=== PATIENT | female | born 1975 | race Caucasian/White ===

== ENCOUNTER → 2017-10-16 | Outpatient (REF) | payer OTHER ==
[~2017-10-16] MED LIST: CEPH500C24 PO; PER PO
== END ==
LOC: ZZSENDIN 11:59
PROVIDERS: ATTEND Family Medicine
DX: D22.9 Melanocytic nevi, unspecified (principal)
CPT/HCPCS: 88305

== ENCOUNTER → 2018-12-07 | Outpatient (CLI) | payer OTHER ==
[~2018-12-07] MED LIST changes: +PROG50VI5 IM
--- NOTE | 2018-12-08 08:37 | RADIOLOGY IMAGING REPORT ---
FACILITY: [facility] - [place] PATIENT NAME: PILY SUAZO : [id number] MR: [id number] V: [id number] EXAM DATE: ORDERING PHYSICIAN: EVA JOHN TECHNOLOGIST: Carolina Melissa PROCEDURE: BILATERAL DIGITAL SCREENING MAMMOGRAM WITH CAD ASSISTED INTERPRETATION & 3D TOMOSYNTHESIS. REASON FOR STUDY: Screening. FAMILY HISTORY OF BREAST CANCER: Possibly maternal grandmother. FAMILY HISTORY OF OVARIAN CANCER: Maternal grandmother. BREAST PROCEDURES/TREATMENTS: None. COMPARISON: None. VIEWS OBTAINED: Bilateral 2D & 3D full field CC & MLO projections & bilateral 2D full field XCC projections. BREAST DENSITY: The breasts are heterogeneously dense which can obscure small masses. MAMMOGRAM FINDINGS: Medial to midline on the Left CC view in the middle depth there is suggestion of a nodular density for which Spot compression view and possibly Left breast Ultrasound is recommended. This is not ideally seen on the Left MLO view. IMPRESSION: BIRADS 0: Incomplete. Additional views of the Left breast and possibly Left breast Ultrasound recommended for further evaluation. DIAGNOSTIC CATEGORY 0--INCOMPLETE: NEED ADDITIONAL IMAGING EVALUATION. RECOMMENDATIONS: ADDITIONAL MAMMOGRAPHIC VIEWS REQUIRED: LEFT BREAST. ULTRASOUND: LEFT BREAST. Dictated by: Lin Dang M.D. on 12/07/2018 at 16:26 Transcribed by: [email or web address] on 12/08/2018 at 7:49 Approved by: Lin Dang M.D. on 12/08/2018 at 8:34 [facility]
== END ==
LOC: MAMO 02:54
PROVIDERS: ATTEND Obstetrics & Gynecology
DX: R92.8 Other abnormal and inconclusive findings on diagnostic imaging of breast (principal)
CPT/HCPCS: 77063; 77067

== ENCOUNTER → 2019-01-01 | Outpatient (REF) | payer OTHER | LOC: ZZSENDIN 14:45 | PROVIDERS: ATTEND Family Medicine | DX: R35.0 Frequency of micturition (principal); B96.20 Unspecified Escherichia coli [E. coli] as the cause of diseases classified elsewhere | CPT/HCPCS: 87077; 87088; 87186 ==

== ENCOUNTER → 2019-01-11 | Outpatient (CLI) | payer OTHER ==
--- NOTE | 2019-01-12 14:37 | RADIOLOGY IMAGING REPORT ---
FACILITY: PATIENT NAME: PILY SUAZO : [id number] MR: [id number] V: [id number] EXAM DATE: [id number] ORDERING PHYSICIAN: EVA JOHN TECHNOLOGIST: Carolina Melissa PROCEDURE:LEFT DIGITAL MAMMOGRAM DIAGNOSTIC WITH CAD ASSISTED INTERPRETATION & 3D TOMOSYNTHESIS. REASON FOR STUDY: Further evaluation. COMPARISON STUDIES: 12/07/2018 & Left breast Ultrasound 01/11/2019. MAMMOGRAM VIEWS OBTAINED: 2D & 3D full field Left mediolateral view & 2D & 3D Spot compression views in the Left CC & MLO projections. BREAST DENSITY: The breasts are heterogeneously dense which can obscure small masses. MAMMOGRAM FINDINGS: Additional images confirm a circumscribed ovoid nodular density in the medial inferior portion of the Left breast. ULTRASOUND AREA SCANNED: 7-9 o'clock position of the Left breast. ULTRASOUND FINDINGS: In the 7 o'clock position of the Left breast 4cm from the nipple there is a ovoid cyst measuring 8 x 3 x 8.5mm contains a small internal septation. This likely accounts for today's mammographic findings. DIAGNOSTIC CATEGORY 2--BENIGN FINDING. RECOMMENDATIONS: ROUTINE MAMMOGRAM AND CLINICAL EVALUATION. IMPRESSION: BIRADS 2: Benign finding. There is a small cyst in the 7 o'clock position of the Left breast as described above. Dictated by: Lin Dang M.D. on 01/11/2019 at 16:25 Transcribed by: [email or web address] on 01/12/2019 at 8:32 Approved by: Lin Dang M.D. on 01/12/2019 at 14:32 [facility]
--- NOTE | 2019-01-12 14:37 | RADIOLOGY IMAGING REPORT ---
FACILITY: [facility] - [place] PATIENT NAME: PILY SUAZO : [id number] MR: [id number] V: [id number] EXAM DATE: [id number] ORDERING PHYSICIAN: EVA JOHN TECHNOLOGIST: Sebas Mcnamara RDMS, ANNA PROCEDURE:US LEFT BREAST COMPARISON:12/07/2018 mammogram. INDICATIONS:Further evaluation AREA SCANNED: 7-9 o'clock position of the Left breast. ULTRASOUND FINDINGS: In the 7 o'clock position of the Left breast 4cm from the nipple there is a ovoid cyst measuring 8 x 3 x 8.5mm contains a small internal septation. This likely accounts for today's mammographic findings. DIAGNOSTIC CATEGORY 2--BENIGN FINDING. RECOMMENDATIONS: ROUTINE MAMMOGRAM AND CLINICAL EVALUATION. IMPRESSION: BIRADS 2: Benign finding. There is a small cyst in the 7 o'clock position of the Left breast as described above. Dictated by: Lin Dang M.D. on 01/11/2019 at 16:25 Transcribed by: [email or web address] on 01/12/2019 at 10:10 Approved by: Lin Dang M.D. on 01/12/2019 at 14:32 [facility]
== END ==
LOC: MAMO 01:17
PROVIDERS: ATTEND Obstetrics & Gynecology
DX: R92.8 Other abnormal and inconclusive findings on diagnostic imaging of breast (principal); N60.02 Solitary cyst of left breast
CPT/HCPCS: 77061; 77065